=== PATIENT | female | born 1955 | race Caucasian/White ===

== ENCOUNTER 2019-12-26 16:47 | Emergency (ER) | payer BC, OTHER ==
[2019-12-26] MEDS ORDERED: Lactated Ringers 1,000 ML IV ONE (17:00)
[2019-12-26] MEDS ORDERED: diphenhydrAMINE 50 MG/ML SDV IVPUSH ONE (17:00)
[2019-12-26] MEDS ORDERED: Sodium Chloride 0.9% 10 ML Syringe FLUSH PRN (17:00)
[2019-12-26] MEDS ORDERED: Ondansetron 4 MG/2 ML SDV IV ONE (17:00)
[2019-12-26] MEDS ORDERED: Iopamidol 612 MG/ML 100 ML Bottle IVPUSH ONE (17:38)
[2019-12-26 17:40] LABS: ANION GAP 13.2 mmol/L (10-20)
--- NOTE | 2019-12-26 18:27 | EDM.PDOC ---
ED HPI GENERAL MEDICAL PROBLEM - General Chief Complaint: General Stated Complaint: CHILLS, FEVER,VOMITING Time Seen by Provider: 12/26/19 16:50 Source of Information: Reports: Patient History Limitations: Reports: No Limitations - History of Present Illness INITIAL COMMENTS - FREE TEXT/NARRATIVE: Patient comes emergency department today from home with concerns of abdominal pain nausea vomiting and a fever. This patient relates that she was fine yesterday and earlier today until about 130 today when she suddenly felt nauseated she vomited multiple times at home. She reports that she vomited about 5 times. She also has lower abdominal pain and cramping more in the left than the right. No diarrhea. She relates that she had a fever quite elevated at home at 99.0. No chills. No chest pain shortness of breath cough or shortness of breath. No weakness dizziness lightheadedness. She does feel like her heart is pounding. No loss of taste or smell. No diarrhea. No hematuria dysuria or urinary frequency. NO COVID exposure no COVID symptoms. 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 ED EXAM, GENERAL - Physical Exam Exam: See Below Exam Limited By: No Limitations General Appearance: Alert, WD/WN, Anxious, Mild Distress Eye Exam: Bilateral Eye: EOMI Ears: Normal External Exam, Normal TMs Nose: Normal Inspection Throat/Mouth: Normal Inspection, Normal Lips, Normal Oropharynx Head: Atraumatic, Normocephalic Neck: Normal Inspection, Supple, Non-Tender Respiratory/Chest: No Respiratory Distress, Lungs Clear, Normal Breath Sounds, No Accessory Muscle Use, Chest Non-Tender Cardiovascular: Normal Peripheral Pulses, Regular Rate, Rhythm, Tachycardia GI/Abdominal: Normal Bowel Sounds, Soft, Guarding (Guarding to the right lower quadrant. Negative McBurney sign. Negative Madsen sign.), Rebound (Rebound tenderness to the left lower quadrant.), Tender. No: Distended, Rigid, Mass (Female) Exam: Deferred Rectal (Female) Exam: Deferred Back Exam: Normal Inspection, Full Range of Motion. No: CVA Tenderness (L), CVA Tenderness (R) Extremities: Normal Inspection, Normal Range of Motion, No Pedal Edema, Normal Capillary Refill Neurological: Alert, Oriented, Normal Cognition, No Motor/Sensory Deficits Psychiatric: Normal Affect, Normal Mood Skin Exam: Intact, Normal Color, Cool, Diaphoretic Course - Vital Signs Last Recorded V/S: Last Vital Signs Temp 99.6 F 12/26/19 17:00 Pulse 120 H 12/26/19 17:00 Resp 24 H 12/26/19 17:00 BP 137/76 12/26/19 17:00 Pulse Ox 97 12/26/19 17:00 - Orders/Labs/Meds Orders: Active Orders 24 hr Category Date Time Status Peripheral IV Insertion Adult [OM.PC] Stat Oth 12/26/19 16:59 Ordered Labs: Laboratory Tests 12/26/19 12/26/19 12/26/19 Range/Units 16:58 17:10 17:10 WBC 17.3 H (4.0-10.0) x10^3/uL RBC 4.74 (4.00-5.50) x10^6/uL Hgb 13.7 (12.0-16.0) g/dL Hct 40.8 (33.0-47.0) % MCV 86.1 (78.0-93.0) fL MCH 28.9 (26.0-32.0) pg MCHC 33.6 (32.0-36.0) g/dL RDW Coeff of Jono 13.7 (10.0-15.0) % Plt Count 251 (130-400) x10^3/uL Neut % (Auto) 90.7 H (50.0-80.0) % Lymph % (Auto) 4.7 L (25.0-50.0) % [place] % (Auto) 4.5 (2.0-11.0) % Eos % (Auto) 0.0 (0.0-4.0) % Baso % (Auto) 0.1 L (0.2-1.2) % Sodium 135 L (136-145) mmol/L Potassium 3.2 L (3.5-5.1) mmol/L Chloride 98 (98-107) mmol/L Carbon Dioxide 27 (21-32) mmol/L Anion Gap 13.2 (10-20) mmol/L BUN 18 (7-18) mg/dL Creatinine 1.0 (0.55-1.02) mg/dL Est Cr Clr Drug Dosing 40.82 mL/min Estimated GFR (MDRD) 56 Glucose 116 H (74-106) mg/dL Lactic Acid (0.4-2.0) mmol/L Calcium 9.3 (8.5-10.1) mg/dL Corrected Calcium 9.14 (8.5-10.1) mg/dL Total Bilirubin 0.7 (0.2-1.0) mg/dL AST 20 (15-37) U/L ALT 27 (14-59) U/L Alkaline Phosphatase 104 (46-116) U/L C-Reactive Protein 2.3 H (<=0.9) mg/dL Total Protein 8.1 (6.4-8.2) g/dL Albumin 4.2 (3.4-5.0) g/dL Globulin 3.9 Albumin/Globulin Ratio 1.08 Lipase 95 (73-393) U/L Urine Color (YELLOW) Urine Appearance (CLEAR) Urine pH (5.0-8.0) Ur Specific [place] Urine Protein (NEGATIVE) mg/dL Urine Glucose (UA) (NEGATIVE) mg/dL Urine Ketones (NEGATIVE) mg/dL Urine Occult Blood (NEGATIVE) Urine Nitrite (NEGATIVE) Urine Bilirubin (NEGATIVE) Urine Urobilinogen (0.2) EU/dL Ur Leukocyte Esterase (NEGATIVE) Urine RBC (NOT SEEN) /HPF Urine WBC (NOT SEEN) /HPF Ur Squamous Epith Cells (NEGATIVE) /HPF Urine Bacteria (NEGATIVE) /HPF Urine Mucus (NEGATIVE) /LPF SARS CoV-2 RNA Rapid FADY Negative (NEGATIVE) 12/26/19 12/26/19 Range/Units 17:10 18:03 WBC (4.0-10.0) x10^3/uL RBC (4.00-5.50) x10^6/uL Hgb (12.0-16.0) g/dL Hct (33.0-47.0) % MCV (78.0-93.0) fL MCH (26.0-32.0) pg MCHC (32.0-36.0) g/dL RDW Coeff of Jono (10.0-15.0) % Plt Count (130-400) x10^3/uL Neut % (Auto) (50.0-80.0) % Lymph % (Auto) (25.0-50.0) % [place] % (Auto) (2.0-11.0) % Eos % (Auto) (0.0-4.0) % Baso % (Auto) (0.2-1.2) % Sodium (136-145) mmol/L Potassium (3.5-5.1) mmol/L Chloride (98-107) mmol/L Carbon Dioxide (21-32) mmol/L Anion Gap (10-20) mmol/L BUN (7-18) mg/dL Creatinine (0.55-1.02) mg/dL Est Cr Clr Drug Dosing mL/min Estimated GFR (MDRD) Glucose (74-106) mg/dL Lactic Acid 1.8 (0.4-2.0) mmol/L Calcium (8.5-10.1) mg/dL Corrected Calcium (8.5-10.1) mg/dL Total Bilirubin (0.2-1.0) mg/dL AST (15-37) U/L ALT (14-59) U/L Alkaline Phosphatase (46-116) U/L C-Reactive Protein (<=0.9) mg/dL Total Protein (6.4-8.2) g/dL Albumin (3.4-5.0) g/dL Globulin Albumin/Globulin Ratio Lipase (73-393) U/L Urine Color Yellow (YELLOW) Urine Appearance Clear (CLEAR) Urine pH 6.5 (5.0-8.0) Ur Specific [place] 1.020 Urine Protein Negative (NEGATIVE) mg/dL Urine Glucose (UA) Negative (NEGATIVE) mg/dL Urine Ketones Negative (NEGATIVE) mg/dL Urine Occult Blood Trace-lysed H (NEGATIVE) Urine Nitrite Negative (NEGATIVE) Urine Bilirubin Negative (NEGATIVE) Urine Urobilinogen 0.2 (0.2) EU/dL Ur Leukocyte Esterase Negative (NEGATIVE) Urine RBC Not seen (NOT SEEN) /HPF Urine WBC 0-5 (NOT SEEN) /HPF Ur Squamous Epith Cells Few H (NEGATIVE) /HPF Urine Bacteria Not seen (NEGATIVE) /HPF Urine Mucus Not seen (NEGATIVE) /LPF SARS CoV-2 RNA Rapid FADY (NEGATIVE) Meds: Medications Discontinued Medications Generic Name Dose Route Start Last Admin Trade Name Freq PRN Reason Stop Dose Admin Diphenhydramine HCl 25 mg 12/26/19 17:00 12/26/19 17:15 Benadryl IVPUSH 12/26/19 17:01 25 mg ONETIME ONE Administration Lactated Ringer's 1,000 mls @ 999 mls/hr 12/26/19 17:00 12/26/19 17:10 Ringers, Lactated IV 12/26/19 18:00 999 mls/hr ONETIME ONE Administration Iopamidol 100 ml 12/26/19 17:38 12/26/19 20:39 Isovue-300 (61%) IVPUSH 12/26/19 17:39 100 ml ONETIME ONE Administration Ondansetron HCl 4 mg 12/26/19 17:00 12/26/19 17:38 Zofran IV 12/26/19 17:01 4 mg ONETIME ONE Administration Ondansetron HCl 1 packet 12/26/19 18:46 12/26/19 19:04 Take Home: Ondansetron Odt 4 Mg, 2 Tab Pack PO 12/26/19 18:47 1 packet ONETIME ONE Administration Sodium Chloride 10 ml 12/26/19 17:00 Saline Flush FLUSH ASDIRECTED PRN Keep Vein Open - Radiology Interpretation Free Text/Narrative:: No acute findings in the abdomen or pelvis although there is an extensive mass arising from the uterine fundus measuring 18 x 15 x 27 mm. [place] location is not consistent with a fibroid. Otherwise CT is unremarkable. - Re-Assessments/Exams Free Text/Narrative Re-Assessment/Exam: EKG completed shows sinus tachycardia without ST elevation or depression when reviewed extemporaneously by myself. 1 L LR wide open. Benadryl 25 mg IV push. Zofran 4 mg IV push. COVID screen is negative. CBC is quite elevated with a white blood cell count at 17. She is afebrile in the emergency department. CRP is minimally elevated. Her urinalysis is unremarkable. CT abdomen pelvis per radiology no acute findings a uterine mass noted most li leesa chronic. After the above therapy the patient feels much better. Her tachycardia has resolved. She is not nauseated and she has not vomited. Reexamination of the abdomen shows a soft nontender nondistended abdomen. The guarding and the rebound tenderness has resolved. Viewed the laboratory evaluation as well as a CT scan with the patient. Her COVID screen is negative. This is really the sequelae of viral gastroenteritis with the rather sudden onset. Despite her elevated white blood cell count this could still be inflammatory response to the viral nature of her gastroenteritis. She does feel quite a bit better and her abdominal exam is unremarkable at this time. We will discharge her home with symptomatic management with Zofran for nausea diet as tolerated. Return to the emergency department new or worsening symptoms. Discharge directions as below are explained to the patient she was comfortable with this plan and her questions are answered. Departure - Departure Time of Disposition: 18:47 Disposition: Home, Self-Care 01 Clinical Impression: Viral gastroenteritis, Uterine mass - Discharge Information Prescriptions: Ondansetron [Ondansetron ODT] 4 mg PO Q6H PRN #12 tab.rapdis PRN Reason: Nausea/Vomiting Instructions: Viral Gastroenteritis, Adult, [id number] Referrals: Padmini Munson, [Primary Care Provider] - Forms: ED Department Discharge Additional Instructions: Lots of fluids over the next few days especially Electrolyte containing solutions like Gatorade and or Powerade etc. Ondansetran, 1 tablet every 6 hrs as needed for nausea or vomiting. Starter pack from the ED given and RX sent to the patients pharmacy [facility]. Simple easy diet. No dairy products. Bananas rice applesauce toast yogurt. Slowly advance as tolerated. Nothing really rich fatty or spicy. [place] type foods. Tylenol as needed for pain. Return to the ED if new or worsening symptoms. Follow up with PCP in the next 4-6 days if not improving sooner if worse. Also with the identification of a uterine mass today on the CT scan you need to see your PCP follow up and possibly a pelvis ultrasound. - My Orders Last 24 Hours: My Active Orders 12/26/19 16:59 Peripheral IV Insertion Adult [OM.PC] Stat - Assessment/Plan Last 24 Hours: My Active Orders 12/26/19 16:59 Peripheral IV Insertion Adult [OM.PC] Stat
--- NOTE | 2019-12-26 18:35 | CT ---
[id number] CT/CT Abdomen Pelvis W IV EXAM: CT Abdomen Pelvis W IV CLINICAL DATA: LEFT LOWER QUADRANT PAIN. LEUKOCYTOSIS. COMPARISON STUDY: None. FINDINGS: Lung bases are clear. Multiple areas of somewhat nodular appearing density adjacent to the nondependent areas of the gallbladder wall. These measure up to 3-4 mm and are possibly polyps. Differential diagnosis includes adherent gallstones. No bowel obstruction or inflammation. Appendix is normal. No lymphadenopathy, free fluid, or pneumoperitoneum. 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 Extensive the mass arising from the uterine fundus measuring 18 x 15 x 27 mm. Appearance and location is most consistent with a fibroid. Adnexal regions are unremarkable. Spondylosis. No fracture or osseous lesion. IMPRESSION: No acute findings in the abdomen or pelvis. Other findings are described above. Kameron Mojica MD 12/26/19 [id number] Thank you for allowing us to participate in the care of your patient.
[2019-12-26] MEDS ORDERED: Take Home: Ondansetron 4 MG Tab.DIS, 2 Tab Pack PO ONE (18:46)
[2019-12-26 19:37] VITALS: BP 137/76; PULSE 120
== END 2019-12-26 19:10 | disposition home or self-care (01) ==
LOC: VM.ED 16:47 → SUPCPDRO 16:47 → VM.ED 19:10
DX: A08.4 Viral intestinal infection, unspecified (principal); N85.8 Other specified noninflammatory disorders of uterus; I10 Essential (primary) hypertension; E03.9 Hypothyroidism, unspecified; Z79.899 Other long term (current) drug therapy; Z20.828 Contact with and (suspected) exposure to other viral communicable diseases
CPT/HCPCS: 74177; 80053; 81001; 83605; 83690; 85025; 86140; 96374; 96375; 99284; 99284-25; A9270-GY; J1200; J2405; J7120; Q9967; U0002